=== PATIENT | female | born 1970 | race Caucasian/White ===

== ENCOUNTER → 2022-09-22 16:07 | Outpatient (CLI) | payer OTHER, SELFPAY ==
[2022-09-22 16:57] LABS: Strep Grp A by PCR Rapid Negative (Negative)
== END ==
PROVIDERS: Referring Provider Orthopaedic Surgery; Visit Provider Orthopaedic Surgery
DX: J02.0 Streptococcal pharyngitis (principal)
CPT/HCPCS: 87070; 87651

== ENCOUNTER → 2022-10-06 13:38 | Outpatient (CLI) | payer OTHER, SELFPAY | PROVIDERS: Referring Provider Internal Medicine; Visit Provider Internal Medicine | DX: Z23 Encounter for immunization (principal) | CPT/HCPCS: 90471; 90682 ==